=== PATIENT | female | born 1975 | race African-American/Black ===

== ENCOUNTER 2017-06-19 00:08 | Emergency (ER) | payer MEDICAID ==
[~2017-06-19] VITALS: Ht 175.3 cm; Wt 131.0 kg
[2017-06-19] MEDS ORDERED: ONDANSETRON HCL 4MG/2ML VIAL IV STA (01:38)
[2017-06-19] MEDS ORDERED: SODIUM CHLORIDE 0.9% 1,000 ML IV ONE (01:38)
[2017-06-19] MEDS ORDERED: MORPHINE SULFATE 4 MG/ML CPJ (NOT FOR IM USE) IV STA (01:38)
[2017-06-19] MEDS ORDERED: TETANUS, DIPHTHERIA, PERTUSSIS VAC/PF 0.5ML (>7YR OLD) IM ONE (01:45)
[2017-06-19 02:07] LABS: BASOPHILS % 0.6 % (0.0-2.0); EOSINOPHILS % 0.2 % (0.0-5.0); HEMATOCRIT. 34.4 % (36.0-48.0); HEMOGLOBIN. 10.9 g/dL (12.0-16.0); LYMPHOCYTES % 9.9 % (20.0-50.0); MEAN CORPUSCULAR HEMOGLOBIN 25.6 pg (28.0-32.0); MEAN CORPUSCULAR VOLUME 80.7 fL (81.0-99.0); MONOCYTES % 6.4 % (2.0-8.0); NEUTROPHILS % 82.9 % (40.0-76.0); PLATELET 403 x1000/uL (130-400); RED BLOOD CELL COUNT 4.26 mill/uL (4.2-5.4); RED CELL DISTRIBUTION WIDTH 15.2 % (11.6-14.6)
[2017-06-19 02:13] LABS: INR 1.1; PARTIAL THROMBOPLASTIN TIME 22.2 sec (23.4-31.0); PROTHROMBIN TIME 11.2 sec (9.4-11.6)
[2017-06-19 02:23] LABS: CARBON DIOXIDE 23 mEq/L (21-32); CHLORIDE 105 mEq/L (98-107); HCG SCREEN NEGATIVE; TROPONIN I 0.02 ng/mL (0.00-0.04)
[2017-06-19 03:01] LABS: CLARITY URINE CLOUDY (CLEAR); COLOR URINE YELLOW (YELLOW); KETONES URINE NEGATIVE (NEGATIVE); LEUKOCYTE ESTERASE URINE NEGATIVE (NEGATIVE); NITRITE URINE NEGATIVE (NEGATIVE); OCCULT BLOOD URINE 3+ (NEGATIVE); PROTEIN URINE 2+ (NEGATIVE); SPECIFIC GRAVITY URINE 1.033 (1.005-1.030)
[2017-06-19] MEDS ORDERED: MORPHINE SULFATE 10 MG/ML CPJ IV ONE ×2 (03:15→04:30)
[2017-06-19] MEDS ORDERED: LORAZEPAM 1MG TABLET PO ONE (04:30)
[2017-06-19] MEDS ORDERED: IOHEXOL-300 100 ML BOTTLE ONE (07:35)
[2017-06-19] MEDS ORDERED: LACTATED RINGERS 1,000 ML IV STA (09:19)
[2017-06-19] MEDS ORDERED: MORPHINE SULFATE 4 MG/ML CPJ (NOT FOR IM USE) IV ONE (10:30)
[2017-06-19 12:25] VITALS: BP 136/81
== END 2017-06-19 13:03 | disposition short-term general hospital (02) ==
LOC: ER 00:08 → EDBEDREQ 06:14 → EDBEDREQSVC 06:14 → EDBEDREQTM 06:14 → ER 13:03 → CANBEDREQ 17:28
DX: S27.329A Contusion of lung, unspecified, initial encounter (principal); S36.113A Laceration of liver, unspecified degree, initial encounter; S01.01XA Laceration without foreign body of scalp, initial encounter; M54.5 Low back pain; F31.9 Bipolar disorder, unspecified; M79.602 Pain in left arm; E66.9 Obesity, unspecified; F17.200 Nicotine dependence, unspecified, uncomplicated; F12.10 Cannabis abuse, uncomplicated; V59.9XXA Occupant (driver) (passenger) of pick-up truck or van injured in unspecified traffic accident, initial encounter; Y93.89 Activity, other specified; Y99.8 Other external cause status; Y92.410 Unspecified street and highway as the place of occurrence of the external cause; Z90.49 Acquired absence of other specified parts of digestive tract
CPT/HCPCS: 12002; 36415; 70450; 71010; 71260; 72125; 72170; 74177; 80053; 81001; 83605; 83690; 84484; 84703; 85025; 85610; 85730; 86850; 86900; 86901; 90471; 90715; 96361; 96374; 96375; 96376; 99291; A4217; J2270; J2405; J7030; J7120; Q9967; Z7610; A4315

== ENCOUNTER 2017-07-23 21:03 | Emergency (ER) | payer MEDICAID ==
[~2017-07-23] VITALS: Ht 175.3 cm; Wt 92.0 kg
[2017-07-24 06:40] VITALS: BP 140/87
== END 2017-07-24 07:41 | disposition home or self-care (01) ==
LOC: ER 22:14
DX: K02.9 Dental caries, unspecified (principal); F17.200 Nicotine dependence, unspecified, uncomplicated; F12.10 Cannabis abuse, uncomplicated; Z86.718 Personal history of other venous thrombosis and embolism; Z90.49 Acquired absence of other specified parts of digestive tract; Z98.890 Other specified postprocedural states
CPT/HCPCS: 99283; Z7610

== ENCOUNTER 2017-12-30 09:42 | Emergency (ER) | payer MEDICAID ==
[~2017-12-30] VITALS: Ht 165.1 cm; Wt 119.0 kg
[2017-12-30] MEDS ORDERED: IBUPROFEN 800MG TABLET PO ONE (10:45)
[2017-12-30 10:55] VITALS: BP 129/78
== END 2017-12-30 12:29 | disposition home or self-care (01) ==
LOC: ER 09:42
DX: M25.571 Pain in right ankle and joints of right foot (principal); M79.89 Other specified soft tissue disorders; F12.90 Cannabis use, unspecified, uncomplicated; Z98.890 Other specified postprocedural states; Z86.711 Personal history of pulmonary embolism
CPT/HCPCS: 73610; 81025; 93971; 99284

== ENCOUNTER 2018-02-27 08:46 | Emergency (ER) | payer MEDICAID ==
[~2018-02-27] VITALS: Ht 180.3 cm; Wt 105.0 kg
[2018-02-27] MEDS ORDERED: MORPHINE SULFATE 4 MG/ML CPJ (NOT FOR IM USE) IV STA (09:16)
[2018-02-27] MEDS ORDERED: ONDANSETRON HCL 4MG/2ML VIAL IV STA (09:16)
[2018-02-27 09:56] LABS: BASOPHILS % 0.8 % (0.0-2.0); EOSINOPHILS % 2.6 % (0.0-5.0); HEMATOCRIT. 33.2 % (36.0-48.0); HEMOGLOBIN. 10.6 g/dL (12.0-16.0); LYMPHOCYTES % 34.2 % (20.0-50.0); MONOCYTES % 7.6 % (2.0-8.0); NEUTROPHILS % 54.8 % (40.0-76.0); PLATELET 329 x1000/uL (130-400); RED BLOOD CELL COUNT 4.43 mill/uL (4.2-5.4); RED CELL DISTRIBUTION WIDTH 17.2 % (11.6-14.6)
[2018-02-27 10:01] LABS: CHLORIDE 106 mEq/L (98-107); INR 1.1; PROTHROMBIN TIME 10.7 sec (9.1-11.1)
[2018-02-27 10:03] LABS: HCG SCREEN NEGATIVE
[2018-02-27] MEDS ORDERED: KETOROLAC 30MG/ML VIAL IV ONE (12:15)
[2018-02-27 12:54] VITALS: BP 121/81
== END 2018-02-27 13:04 | disposition home or self-care (01) ==
LOC: ER 09:18
DX: M54.6 Pain in thoracic spine (principal); R79.1 Abnormal coagulation profile
CPT/HCPCS: 36415; 71045; 80053; 83880; 84484; 84703; 85025; 85610; 93005; 96374; 96375; 99285; J1885; J2270; J2405; Z7610

== ENCOUNTER 2018-07-31 11:34 | Emergency (ER) | payer MEDICAID ==
[~2018-07-31] VITALS: Ht 175.3 cm; Wt 102.0 kg
[2018-07-31 11:42] VITALS: BP 143/92
== END 2018-07-31 16:38 | disposition left against medical advice (07) ==
LOC: ER 12:48
DX: R10.13 Epigastric pain (principal); R11.10 Vomiting, unspecified; R19.7 Diarrhea, unspecified; Z53.21 Procedure and treatment not carried out due to patient leaving prior to being seen by health care provider

== ENCOUNTER 2021-04-16 18:43 | Inpatient (IN) | payer MEDICAID, OTHER ==
[~2021-04-16] VITALS: Ht 175.3 cm; Wt 118.4 kg
[2021-04-16] MEDS ORDERED: ONDANSETRON HCL 4MG/2ML INJ IV STA (18:55)
[2021-04-16] MEDS ORDERED: SODIUM CHLORIDE 0.9% 1,000 ML IV ONE (19:00)
[2021-04-16] MEDS ORDERED: NALOXONE HCL 1 MG/ML 2ML VIAL IV ONE (19:00)
[2021-04-16 19:09] LABS: BASOPHILS % 0.4 % (0.0-2.0); EOSINOPHILS % 1.6 % (0.0-5.0); HEMATOCRIT. 30.2 % (36.0-48.0); HEMOGLOBIN. 8.6 g/dL (12.0-16.0); LYMPHOCYTES % 51.1 % (20.0-50.0); MEAN CORPUSCULAR HEMOGLOBIN 20.4 pg (28.0-32.0); MEAN CORPUSCULAR VOLUME 71.6 fL (81.0-99.0); MEAN PLATELET VOLUME 9.2 fl (7.4-10.4); NEUTROPHILS % 40.9 % (40.0-76.0); PLATELET 473 x1000/uL (130-400); RED BLOOD CELL COUNT 4.22 mill/uL (4.2-5.4); RED CELL DISTRIBUTION WIDTH 18.6 % (11.6-14.6)
[2021-04-16 19:15] LABS: CHLORIDE 105 mEq/L (98-107)
[2021-04-16 19:22] LABS: ETHANOL BLOOD < 10 mg/dL
[2021-04-16 19:29] LABS: HCG SCREEN NEGATIVE
[2021-04-16] MEDS ORDERED: SODIUM CHLORIDE 0.9% 1000ML BAG (SEPSIS BOLUS) IV ONE (19:30)
[2021-04-16] MEDS ORDERED: AZITHROMYCIN 500MG/250ML 250 ML IV ONE (19:30)
[2021-04-16] MEDS ORDERED: CEFTRIAXONE 1 G PREMIX 50 ML IV ONE (19:30)
[2021-04-16] MEDS ORDERED: ONDANSETRON HCL 4MG/2ML INJ IV ONE (20:30)
[2021-04-16] MEDS ORDERED: LORAZEPAM 2MG/ML CPJ IV ONE (22:00)
[2021-04-16] MEDS ORDERED: CLINDAMYCIN 600 MG in DEXTROSE 5% WATER 50 ML IV ONE (22:45)
[2021-04-16] MEDS ORDERED: CLINDAMYCIN 600MG PREMIX 50 ML IV NR (22:45)
[2021-04-17] VITALS (8 sets, daily range): BP systolic 116–127; BP diastolic 68–83
[2021-04-17] MEDS ORDERED: DEXTROSE 50% WATER 50ML SYRINGE IV PRN (02:00)
[2021-04-17] MEDS ORDERED: ACETAMINOPHEN 325MG TABLET PO PRN (02:00)
[2021-04-17 03:55] LABS: CLARITY URINE CLEAR (CLEAR); COLOR URINE YELLOW (YELLOW); KETONES URINE NEGATIVE (NEGATIVE); LEUKOCYTE ESTERASE URINE NEGATIVE (NEGATIVE); NITRITE URINE NEGATIVE (NEGATIVE); OCCULT BLOOD URINE NEGATIVE (NEGATIVE); PH URINE 5.5 (4.5-8.0); PROTEIN URINE 1+ (NEGATIVE); SPECIFIC GRAVITY URINE 1.017 (1.005-1.030); UROBILINOGEN URINE 0.2 E.U./dL (0.2-1.0)
[2021-04-17 05:06] LABS: *BARBITURATES SCREEN URINE NEGATIVE (NEGATIVE)
[2021-04-17 05:07] LABS: *AMPHETAMINES SCREEN URINE NEGATIVE (NEGATIVE); *BENZODIAZEPINES SCREEN URINE NEGATIVE (NEGATIVE); *COCAINE SCREEN URINE NEGATIVE (NEGATIVE); METHADONE URINE SCREEN NEGATIVE (NEGATIVE); PHENCYCLIDINE URINE SCREEN NEGATIVE (NEGATIVE)
[2021-04-17 05:08] LABS: OPIATES URINE SCREEN NEGATIVE (NEGATIVE)
[2021-04-17 05:09] LABS: CANNABINOID URINE SCREEN PRESUMTIVE POSITIVE (NEGATIVE)
[2021-04-17] MEDS: BLOOD SUGAR DIAGNOSTIC STRIP TEST SCH ×3 (07:46→17:30)
[2021-04-17] MEDS: INSULIN LISPRO 100 UNITS/ML SUBCUT SCH ×2 (08:00→12:43)
[2021-04-17] MEDS ORDERED: PANTOPRAZOLE SODIUM 40 MG/VIAL IV SCH (09:00)
[2021-04-17] MEDS: ONDANSETRON HCL 4MG/2ML INJ IV PRN ×2 (09:16→16:55)
[2021-04-17] MEDS ORDERED: PIPERACILLIN/TAZOBACTAM 3.375 G in DEXTROSE 5% WATER 50 ML IV SCH (10:00)
[2021-04-17] MEDS ORDERED: INFLUENZA VACCINE 05/PF 0.5 ML SYRINGE IM ONE (12:00)
[2021-04-17 13:22] LABS: BASOPHILS % 0.7 % (0.0-2.0); EOSINOPHILS % 1.2 % (0.0-5.0); HEMATOCRIT. 26.6 % (36.0-48.0); HEMOGLOBIN. 8.1 g/dL (12.0-16.0); LYMPHOCYTES % 22.2 % (20.0-50.0); MEAN CORPUSCULAR HEMOGLOBIN 20.7 pg (28.0-32.0); MEAN CORPUSCULAR VOLUME 67.6 fL (81.0-99.0); MEAN PLATELET VOLUME 9.1 fl (7.4-10.4); MONOCYTES % 6.7 % (2.0-8.0); NEUTROPHILS % 69.2 % (40.0-76.0); PLATELET 313 x1000/uL (130-400); RED BLOOD CELL COUNT 3.94 mill/uL (4.2-5.4)
[2021-04-17 13:31] LABS: CHLORIDE 104 mEq/L (98-107)
[2021-04-17] MEDS ORDERED: DOCU-138 MT (16:22)
[2021-04-17] MEDS ORDERED: METF-416 MT (16:22)
[2021-04-17] MEDS ORDERED: FERR-71 MT (16:22)
[2021-04-17] MEDS ORDERED: LEVO50TA MT (16:22)
[2021-04-17] MEDS ORDERED: LEVOTHYROXINE SODIUM 50MCG TABLET PO SCH (16:30)
[2021-04-17 19:27] LABS: PLATELET ESTIMATE NORMAL
== END 2021-04-17 19:00 | disposition home or self-care (01) | DRG 52 ==
LOC: ER 18:43 → 5EST 22:38 → ENRESERV 23:22
PROVIDERS: ADMIT Internal Medicine; ATTEND Internal Medicine
DX: G92.9 Unspecified toxic encephalopathy (principal); J96.90 Respiratory failure, unspecified, unspecified whether with hypoxia or hypercapnia; R65.10 Systemic inflammatory response syndrome (SIRS) of non-infectious origin without acute organ dysfunction; D64.9 Anemia, unspecified; D72.829 Elevated white blood cell count, unspecified; E11.9 Type 2 diabetes mellitus without complications; E03.9 Hypothyroidism, unspecified; E66.9 Obesity, unspecified; Z20.822 Contact with and (suspected) exposure to COVID-19; E87.6 Hypokalemia; F12.90 Cannabis use, unspecified, uncomplicated; Z71.51 Drug abuse counseling and surveillance of drug abuser; Z71.3 Dietary counseling and surveillance; Z86.718 Personal history of other venous thrombosis and embolism; Z90.49 Acquired absence of other specified parts of digestive tract; Z98.891 History of uterine scar from previous surgery; Z68.38 Body mass index [BMI] 38.0-38.9, adult; F14.11 Cocaine abuse, in remission
CPT/HCPCS: 36415; 71045; 80048; 80053; 80305; 80307; 80320; 80329; 81003; 82962; 83036; 83605; 84443; 84484; 84703; 85025; 87426; 93005; 99291; C9113; J0456; J0696; J2060; J2310; J2405; J2543; J3490; J7030; J7060; G0480

== ENCOUNTER 2021-08-19 11:37 | Emergency (ER) | payer OTHER ==
[~2021-08-19] VITALS: Ht 172.7 cm; Wt 91.0 kg
[~2021-08-19 11:37] MED LIST: DOCU-138 MT; FERR-71 MT; LEVO50TA MT; METF-416 MT
[2021-08-19 12:05] VITALS: BP 147/88
[2021-08-19 12:30] LABS: BASOPHILS % 1.4 % (0.0-2.0); EOSINOPHILS % 1.6 % (0.0-5.0); HEMATOCRIT. 27.5 % (36.0-48.0); HEMOGLOBIN. 8.1 g/dL (12.0-16.0); LYMPHOCYTES % 29.8 % (20.0-50.0); MEAN CORPUSCULAR HEMOGLOBIN 19.2 pg (28.0-32.0); MEAN CORPUSCULAR VOLUME 65.1 fL (81.0-99.0); MEAN PLATELET VOLUME 8.3 fl (7.4-10.4); MONOCYTES % 8.1 % (2.0-8.0); NEUTROPHILS % 59.1 % (40.0-76.0); PLATELET 361 x1000/uL (130-400); RED BLOOD CELL COUNT 4.23 mill/uL (4.2-5.4); RED CELL DISTRIBUTION WIDTH 18.5 % (11.6-14.6)
[2021-08-19 12:39] LABS: CHLORIDE 105 mEq/L (98-107)
[2021-08-19 12:48] LABS: PLATELET ESTIMATE NORMAL
[2021-08-19] MEDS ORDERED: DOXYCYCLINE HYCLATE 100MG CAPSULE PO NR (15:15)
[2021-08-19] MEDS ORDERED: AMOXICILLIN/POTASSIUM CLAVULANATE 875/125MG TAB PO NR (15:15)
[2021-08-19] MEDS ORDERED: POTASSIUM CHLORIDE 20MEQ TABLET SR PO NR (16:00)
[2021-08-19] MEDS ORDERED: AZIT250T12 MT (16:51)
[2021-08-19] MEDS ORDERED: FLUO20CA33 MT (16:52)
== END 2021-08-19 17:18 | disposition left against medical advice (07) ==
LOC: ER 11:37
DX: J18.9 Pneumonia, unspecified organism (principal); Z76.0 Encounter for issue of repeat prescription
CPT/HCPCS: 36415; 71045; 80053; 83880; 84484; 85025; 85379; 93005; 99285

== ENCOUNTER 2022-02-02 08:54 | Emergency (ER) | payer MEDICAID, OTHER ==
[~2022-02-02] VITALS: Ht 175.3 cm; Wt 89.0 kg
[~2022-02-02 08:54] MED LIST changes: +AZIT250T12 MT; +FLUO20CA33 MT
[2022-02-02 09:03] VITALS: BP 159/87
[2022-02-02] MEDS ORDERED: FLUO20CA33 MT (09:59)
== END 2022-02-02 10:07 | disposition home or self-care (01) ==
LOC: ER 08:54
DX: Z76.0 Encounter for issue of repeat prescription (principal); F32.A Depression, unspecified; I10 Essential (primary) hypertension; F12.90 Cannabis use, unspecified, uncomplicated
CPT/HCPCS: 99283

== ENCOUNTER 2022-02-17 10:18 | Emergency (ER) | payer OTHER, MEDICAID ==
[~2022-02-17] VITALS: Ht 170.2 cm; Wt 104.0 kg
[2022-02-17 10:29] VITALS: BP 141/82
[2022-02-17] MEDS ORDERED: FLUO20CA39 PO (11:07)
== END 2022-02-17 11:25 | disposition home or self-care (01) ==
LOC: ER 10:18
DX: F32.A Depression, unspecified (principal); I10 Essential (primary) hypertension; E11.9 Type 2 diabetes mellitus without complications; Z86.39 Personal history of other endocrine, nutritional and metabolic disease
CPT/HCPCS: 99283

== ENCOUNTER 2022-03-24 10:13 | Emergency (ER) | payer MEDICAID, OTHER ==
[~2022-03-24] VITALS: Ht 175.3 cm; Wt 118.0 kg
[~2022-03-24 10:13] MED LIST changes: +FLUO20CA39 PO
[2022-03-24 10:18] VITALS: BP 157/102
[2022-03-24] MEDS ORDERED: HYDROCODONE/ACETAMINOPHEN 5/325MG TABLET PO ONE (11:15)
[2022-03-24] MEDS ORDERED: IBUP-2029 MT (12:05)
[2022-03-24] MEDS ORDERED: PENI500T MT (12:05)
[2022-03-24] MEDS ORDERED: T3 PO (12:05)
== END 2022-03-24 12:24 | disposition home or self-care (01) ==
LOC: ER 10:13
DX: S02.5XXA Fracture of tooth (traumatic), initial encounter for closed fracture (principal); S02.609A Fracture of mandible, unspecified, initial encounter for closed fracture; F12.10 Cannabis abuse, uncomplicated; E11.9 Type 2 diabetes mellitus without complications; Z79.899 Other long term (current) drug therapy; Z86.39 Personal history of other endocrine, nutritional and metabolic disease; Z98.890 Other specified postprocedural states; X58.XXXA Exposure to other specified factors, initial encounter; Y93.89 Activity, other specified; Y92.89 Other specified places as the place of occurrence of the external cause; Y99.8 Other external cause status
CPT/HCPCS: 99283

== ENCOUNTER 2023-03-31 07:22 | Emergency (ER) | payer MEDICAID, OTHER ==
[~2023-03-31] VITALS: Ht 175.3 cm; Wt 103.0 kg
[~2023-03-31 07:22] MED LIST changes: +IBUP-2029 MT; +PENI500T MT; +T3 PO
[2023-03-31 07:28] VITALS: TEMP 98.3; O2SAT 100
[2023-03-31 08:08] LABS: EOSINOPHILS % 2.4 % (0.0-5.0); HEMATOCRIT. 29.3 % (36.0-48.0); HEMOGLOBIN. 8.8 g/dL (12.0-16.0); MEAN CORPUSCULAR HEMOGLOBIN 19.4 pg (28.0-32.0); MEAN CORPUSCULAR VOLUME 64.5 fL (81.0-99.0); MEAN PLATELET VOLUME 8.6 fl (7.4-10.4); MONOCYTES % 11.3 % (2.0-8.0); NEUTROPHILS % 60.3 % (40.0-76.0); PLATELET 361 x1000/uL (130-400); RED BLOOD CELL COUNT 4.55 mill/uL (4.2-5.4); RED CELL DISTRIBUTION WIDTH 19.4 % (11.6-14.6); WHITE BLOOD COUNT 8.7 x1000/uL (4.5-11.0)
[2023-03-31] MEDS ORDERED: FAMOTIDINE 20MG TABLET PO ONE (08:15)
[2023-03-31 08:23] LABS: CHLORIDE 105 mEq/L (98-107); INDEX HEMOLYSI 1 (1-3); INDEX ICTERIC 1 (1-4); INDEX LIPEMIC 1 (1-3); SODIUM 136 mEq/L (136-145)
[2023-03-31 08:31] LABS: ADD RBC MORPHOLOGY YES; DIFFERENTIAL COMMENT 1
[2023-03-31 08:33] LABS: ALANINE AMINOTRANSFERASE 19 IU/L (13-61); ASPARTATE AMINOTRANSFERASE 19 IU/L (15-37); BILIRUBIN TOTAL 1.3 mg/dL (0.1-1.0); CARBON DIOXIDE 21 mEq/L (21-32); CREATININE 0.9 mg/dL (0.6-1.3); GLUCOSE 140 mg/dL (70-105); PROTEIN TOTAL 9.6 g/dL (6.0-8.3); TROPONIN I HIGH SENSITIVITY 10 ng/L (<54); UREA NITROGEN BLOOD 8 mg/dL (7-21)
[2023-03-31 09:15] VITALS: BP 149/86; PULSE 118; RESP 18
[2023-03-31] MEDS ORDERED: ACETAMINOPHEN WITH CODEINE 300/30MG TABLET PO ONE (09:15)
[2023-03-31] MEDS ORDERED: ONDANSETRON HCL 4MG TABLET PO ONE (09:15)
[2023-03-31 09:58] LABS: MICROCYTOSIS 2+
[2023-03-31 09:59] LABS: HYPOCHROMASIA 1+; PLATELET ESTIMATE NORMAL
[2023-03-31] MEDS ORDERED: ONDA4TAB50 PO ×2 (10:10)
[2023-03-31] MEDS ORDERED: TOPUD PO ×2 (10:10)
[2023-04-02] MEDS ORDERED: FERR324T4 PO (18:06)
[2023-04-02] MEDS ORDERED: LURA20TA2 PO (18:06)
== END 2023-03-31 10:36 | disposition home or self-care (01) ==
LOC: ER 07:22
DX: R10.13 Epigastric pain (principal); I10 Essential (primary) hypertension; E11.9 Type 2 diabetes mellitus without complications; Z98.890 Other specified postprocedural states; Z79.899 Other long term (current) drug therapy; Z90.49 Acquired absence of other specified parts of digestive tract; Z86.39 Personal history of other endocrine, nutritional and metabolic disease
CPT/HCPCS: 99284; 80053; 83690; 85025; 84484; 36415; 93005; Q0162

== ENCOUNTER 2023-03-31 13:42 | Emergency (ER) | payer MEDICAID ==
[~2023-03-31] VITALS: Ht 175.3 cm; Wt 86.0 kg
[~2023-03-31 13:42] MED LIST changes: +ONDA4TAB50 PO; +TOPUD PO
[2023-03-31 13:50] VITALS: BP 132/84; PULSE 96; RESP 18; TEMP 98.2; O2SAT 99
[2023-03-31] MEDS ORDERED: ONDANSETRON HCL 4MG/2ML INJ IV STA (14:50)
[2023-03-31] MEDS ORDERED: SODIUM CHLORIDE 0.9% 1,000 ML IV ONE (15:00)
[2023-03-31 16:44] LABS: EOSINOPHILS % 0.7 % (0.0-5.0); HEMATOCRIT. 30.1 % (36.0-48.0); HEMOGLOBIN. 8.8 g/dL (12.0-16.0); LYMPHOCYTES % 19.7 % (20.0-50.0); MEAN CORPUSCULAR HGB CONC 29.3 g/dL (31.0-37.0); MEAN CORPUSCULAR VOLUME 64.8 fL (81.0-99.0); MEAN PLATELET VOLUME 8.7 fl (7.4-10.4); NEUTROPHILS % 67.6 % (40.0-76.0); PLATELET 377 x1000/uL (130-400); RED BLOOD CELL COUNT 4.64 mill/uL (4.2-5.4); RED CELL DISTRIBUTION WIDTH 19.2 % (11.6-14.6); WHITE BLOOD COUNT 8.9 x1000/uL (4.5-11.0)
[2023-03-31 16:46] LABS: DIFFERENTIAL COMMENT 1
[2023-03-31 16:55] LABS: CHLORIDE 107 mEq/L (98-107); INDEX HEMOLYSI 1 (1-3); INDEX ICTERIC 1 (1-4); INDEX LIPEMIC 1 (1-3); SODIUM 134 mEq/L (136-145)
[2023-03-31 17:12] LABS: ALANINE AMINOTRANSFERASE 19 IU/L (13-61); ALBUMIN 4.2 g/dL (3.4-5.0); ASPARTATE AMINOTRANSFERASE 18 IU/L (15-37); BILIRUBIN TOTAL 1.7 mg/dL (0.1-1.0); CALCIUM 9.7 mg/dL (8.5-10.1); CARBON DIOXIDE 23 mEq/L (21-32); CREATININE 1.4 mg/dL (0.6-1.3); GLUCOSE 141 mg/dL (70-105); NT PRO B-TYPE NATRIURETIC PEP 25 pg/mL (5-125); PROTEIN TOTAL 9.8 g/dL (6.0-8.3); UREA NITROGEN BLOOD 10 mg/dL (7-21)
[2023-04-02] MEDS ORDERED: FERR324T4 PO (18:06)
[2023-04-02] MEDS ORDERED: LURA20TA2 PO (18:06)
== END 2023-03-31 20:58 | disposition left against medical advice (07) ==
LOC: ER 13:42
DX: A08.4 Viral intestinal infection, unspecified (principal); I10 Essential (primary) hypertension; E11.9 Type 2 diabetes mellitus without complications; Z90.49 Acquired absence of other specified parts of digestive tract; Z79.899 Other long term (current) drug therapy; Z98.890 Other specified postprocedural states; Z86.39 Personal history of other endocrine, nutritional and metabolic disease
CPT/HCPCS: 36415; 71045; 80053; 83880; 85025; 99284

== ENCOUNTER 2023-05-15 07:21 | Emergency (ER) | payer MEDICAID ==
[~2023-05-15] VITALS: Ht 175.3 cm; Wt 101.1 kg
[~2023-05-15 07:21] MED LIST changes: -AZIT250T12 MT; -DOCU-138 MT; -FERR-71 MT; +FERR325T6 PO; -FLUO20CA33 MT; -FLUO20CA39 PO; -IBUP-2029 MT; -LEVO50TA MT; +LURA20TA2 PO; -METF-416 MT; -ONDA4TAB50 PO; +PANT40SU PO; -PENI500T MT; +SENN-257 MT; +SUCR1TAB30 MT; -T3 PO; -TOPUD PO
[2023-05-15 07:37] VITALS: BP 120/78; PULSE 84; RESP 16; TEMP 98.2; O2SAT 96
[2023-05-15 09:04] LABS: CLARITY URINE TURBID (CLEAR); COLOR URINE DARK YELLOW (YELLOW); GLUCOSE URINE NEGATIVE (NEGATIVE); KETONES URINE NEGATIVE (NEGATIVE); LEUKOCYTE ESTERASE URINE 3+ (NEGATIVE); NITRITE URINE NEGATIVE (NEGATIVE); OCCULT BLOOD URINE 3+ (NEGATIVE); PROTEIN URINE 2+ (NEGATIVE); SPECIFIC GRAVITY URINE 1.012 (1.005-1.030); UROBILINOGEN URINE 0.2 E.U./dL (0.2-1.0)
[2023-05-15] MEDS ORDERED: IBUPROFEN 600MG TABLET PO ONE (09:30)
[2023-05-15 09:32] LABS: WBC URINE TNTC /hpf (0-2)
[2023-05-15 09:34] LABS: BACTERIA URINE 4+; RBC URINE 15-25 /hpf (0-2); SQUAMOUS EPITHELIAL CELL URINE FEW /lpf (RARE/1+)
[2023-05-15] MEDS ORDERED: PHEN-815 MT (09:44)
[2023-05-15] MEDS ORDERED: CEFP200T13 MT (09:44)
== END 2023-05-15 10:03 | disposition home or self-care (01) ==
LOC: ER 08:05
DX: N30.00 Acute cystitis without hematuria (principal); F12.10 Cannabis abuse, uncomplicated; I10 Essential (primary) hypertension; E11.9 Type 2 diabetes mellitus without complications; Z98.890 Other specified postprocedural states; Z90.49 Acquired absence of other specified parts of digestive tract; Z86.39 Personal history of other endocrine, nutritional and metabolic disease
CPT/HCPCS: 81003; 81025; 87077; 87186; 99283

== ENCOUNTER 2023-08-01 07:20 | Emergency (ER) | payer MEDICAID ==
[~2023-08-01] VITALS: Ht 175.3 cm; Wt 121.0 kg
[~2023-08-01 07:20] MED LIST changes: +CEFP200T13 MT; +PHEN-815 MT
[2023-08-01 07:24] VITALS: O2SAT 98
[2023-08-01] MEDS ORDERED: LIDOCAINE 5% PATCH TOP STA (08:29)
[2023-08-01] MEDS ORDERED: METHOCARBAMOL 500MG TABLET PO ONE (08:30)
[2023-08-01] MEDS ORDERED: KETOROLAC 60MG/2ML VIAL IM ONE (08:30)
[2023-08-01 09:09] LABS: HCG SCREEN NEGATIVE
[2023-08-01 10:28] LABS: CLARITY URINE CLOUDY (CLEAR); COLOR URINE YELLOW (YELLOW); GLUCOSE URINE NEGATIVE (NEGATIVE); KETONES URINE NEGATIVE (NEGATIVE); LEUKOCYTE ESTERASE URINE TRACE (NEGATIVE); NITRITE URINE NEGATIVE (NEGATIVE); OCCULT BLOOD URINE NEGATIVE (NEGATIVE); PROTEIN URINE NEGATIVE (NEGATIVE); SPECIFIC GRAVITY URINE 1.008 (1.005-1.030); UROBILINOGEN URINE 0.2 E.U./dL (0.2-1.0)
[2023-08-01 10:51] LABS: SQUAMOUS EPITHELIAL CELL URINE 3+ /lpf (RARE/1+)
[2023-08-01 10:52] LABS: BACTERIA URINE 3+
[2023-08-01 10:53] LABS: RBC URINE NONE SEEN /hpf (0-2); WBC URINE 0-2 /hpf (0-2)
[2023-08-01] MEDS ORDERED: LIDO1ADH23 TP (11:13)
[2023-08-01] MEDS ORDERED: METH-653 MT (11:13)
[2023-08-01 11:50] VITALS: BP 135/89; PULSE 65; RESP 18; TEMP 97.9
== END 2023-08-01 11:53 | disposition home or self-care (01) ==
LOC: ER 07:32
DX: M54.50 Low back pain, unspecified (principal); F12.90 Cannabis use, unspecified, uncomplicated; F41.9 Anxiety disorder, unspecified; F32.A Depression, unspecified; E11.9 Type 2 diabetes mellitus without complications; I10 Essential (primary) hypertension; E05.90 Thyrotoxicosis, unspecified without thyrotoxic crisis or storm; Z90.49 Acquired absence of other specified parts of digestive tract; Z98.890 Other specified postprocedural states
CPT/HCPCS: 99284; 81003; 84703; 72100; 96372; J1885

== ENCOUNTER 2024-07-22 08:53 | Emergency (ER) | payer MEDICAID ==
[~2024-07-22] VITALS: Ht 172.7 cm; Wt 119.0 kg
[~2024-07-22 08:53] MED LIST changes: +LIDO1ADH23 TP; +METH-653 MT; -SENN-257 MT; +SENN-362 MT
[2024-07-22 08:59] VITALS: O2SAT 100
[2024-07-22 10:45] LABS: BASOPHILS % 0.6 % (0.0-2.0); DIFFERENTIAL COMMENT 0; EOSINOPHILS % 0.1 % (0.0-5.0); HEMATOCRIT. 36.3 % (36.0-48.0); HEMOGLOBIN. 11.1 g/dL (12.0-16.0); MEAN CORPUSCULAR HEMOGLOBIN 23.2 pg (28.0-32.0); MEAN CORPUSCULAR HGB CONC 30.7 g/dL (31.0-37.0); MEAN CORPUSCULAR VOLUME 75.5 fL (81.0-99.0); MONOCYTES % 13.7 % (2.0-8.0); NEUTROPHILS % 76.6 % (40.0-76.0); PLATELET 417 x1000/uL (130-400); RED BLOOD CELL COUNT 4.81 mill/uL (4.2-5.4); RED CELL DISTRIBUTION WIDTH 17.5 % (11.6-14.6)
[2024-07-22] MEDS: ONDANSETRON 4MG ODT PO ONE (11:12)
[2024-07-22] MEDS: KETOROLAC 30MG/ML VIAL IM ONE (11:20)
[2024-07-22 11:23] LABS: POTASSIUM 3.7 mEq/L (3.5-5.1)
[2024-07-22 11:29] LABS: CREATININE 1.2 mg/dL (0.6-1.0)
[2024-07-22] MEDS ORDERED: ONDA4TAB50 MT (11:43)
[2024-07-22 12:21] VITALS: BP 128/83; PULSE 97; RESP 18; TEMP 36.89184; O2SAT 98
[2024-07-22 12:34] LABS: CLARITY URINE TURBID (CLEAR); COLOR URINE DARK YELLOW (YELLOW); GLUCOSE URINE NEGATIVE (NEGATIVE); KETONES URINE TRACE (NEGATIVE); LEUKOCYTE ESTERASE URINE NEGATIVE (NEGATIVE); NITRITE URINE NEGATIVE (NEGATIVE); OCCULT BLOOD URINE NEGATIVE (NEGATIVE); PH URINE 5.5 (4.5-8.0); PROTEIN URINE 2+ (NEGATIVE); SPECIFIC GRAVITY URINE 1.032 (1.005-1.030)
[2024-07-22 12:54] LABS: BACTERIA URINE 4+; RBC URINE 0-2 /hpf (0-2); SQUAMOUS EPITHELIAL CELL URINE 3+ /lpf (RARE/1+); YEAST URINE NONE SEEN
== END 2024-07-22 12:23 | disposition home or self-care (01) ==
LOC: ER 08:57
DX: R05.9 Cough, unspecified (principal); F12.10 Cannabis abuse, uncomplicated; E11.9 Type 2 diabetes mellitus without complications; I10 Essential (primary) hypertension; F32.A Depression, unspecified; F41.9 Anxiety disorder, unspecified; Z79.899 Other long term (current) drug therapy; Z90.49 Acquired absence of other specified parts of digestive tract; Z98.890 Other specified postprocedural states; Z86.39 Personal history of other endocrine, nutritional and metabolic disease
CPT/HCPCS: 99285; 71045; 80048; 81003; 81025; 83690; 85025; 36415; 93005; 96372; J1885; Q0162